=== PATIENT | male | born 1980 | race Caucasian/White ===

== ENCOUNTER 2024-08-03 13:27 | Emergency (ER) | payer OTHER, SELFPAY ==
[2024-08-03] VITALS (26 sets, daily range): BP systolic 118–149; BP diastolic 78–106; PULSE 97–150; RESP 13–25; TEMP 36.6; O2SAT 95–100; BMI 20.2
--- NOTE | 2024-08-03 13:51 | EKG_ITS ---
[place] [id number] [place] [id number] Test Date: 2024-08-03 Pat Name: Octavio Díaz Department: [facility] Room: Gender: Male Mobile Sales Assistant: : 1980 Requested By: Order Number: [id number] Reading MD: Jerry Minaya Measurements Intervals [place] Rate: 142 P: 62 NH: 124 QRS: 76 QRSD: 74 T: 64 QT: 292 QTc: 449 Interpretive Statements Critical Test Result: High HR Sinus tachycardia Electronically Signed On 08-03-2024 14:38:08 PDT by Jerry Minaya
--- NOTE | 2024-08-03 13:51 | ED_ITS ---
HPI - General Adult General Chief complaint: Toxicology Problem Stated complaint: alcohol withdrawl Time Seen by Provider: 08/03/24 13:37 Source: patient Mode of arrival: Ambulatory History of Present Illness HPI narrative: Patient is a 44-year-old male. History of alcohol abuse. States that he was sober for ?quite a long time? before 1 month ago when he started to drink again. He was kicked out of his sober living situation. Has been homeless since then. He also uses methamphetamine. He states his last use of methamphetamine was 2 days ago. He snorted methamphetamine. He does not inject anything. His last drink was at 0300 hours in the morning. He has withdrawn from alcohol in the past. He thinks that maybe he was had a seizure because of alcohol withdrawal but is not sure. Denies any other medical problems. He was here for help with detox. Related Data Home Medications Medication Instructions Recorded Confirmed alprazolam 0.5 mg tablet 0.5 mg PO 3XD PRN Anxiety 08/03/24 08/03/24 divalproex 500 mg tablet,delayed 500 mg PO DAILY 08/03/24 08/03/24 release methylphenidate HCl 20 mg tablet 20 mg PO BID 08/03/24 08/03/24 propranolol 20 mg tablet 40 mg PO BID 08/03/24 08/03/24 quetiapine 200 mg tablet 200 mg PO ONCE PM 08/03/24 08/03/24 Allergies Allergy/AdvReac Type Severity Reaction Status Date / Time No Known Drug Allergies Allergy Verified 08/03/24 13:30 Review of Systems Review of Systems ROS Unobtainable: All systems reviewed & are unremarkable except as noted in HPI and below Patient History Social History Smoking Status: Never smoker Smoking Status: Never smoker alcohol intake frequency: 3 or more drinks per day Alcohol type: hard liquor Substance Use Type: methamphetamine Exam Initial Vital Signs Initial Vital Signs: Vital Signs Temperature 98 F 08/03/24 13:30 Pulse Rate 150 H 08/03/24 13:30 Respiratory Rate 22 08/03/24 13:30 Blood Pressure 140/91 H 08/03/24 13:30 Pulse Oximetry 99 08/03/24 13:30 Oxygen Delivery Method Room Air 08/03/24 13:30 Const General: cooperative and No ill appearing HENMT Head: normal to inspection and normocephalic Resp Effort & Inspection: no cough and tachypneic Auscultation: clear to auscultation bilaterally Cardio Rate: tachycardic Rhythm: regular rhythm GI Inspection: normal to inspection Skin General: no rashes or lesions noted Neuro General: patient alert, patient awake, patient oriented x3 and moves all extremities Extrem General: capillary refill normal Course Orders Ordered: ED Orders 08/03/24 13:34 Consult to [employer] - Re Etcher Stat 08/03/24 13:39 EKG-12 Lead Stat 08/03/24 13:50 Complete Blood Count AUTO DIFF Stat Comprehensive Metabolic Panel Stat Ethanol (ETOH) Stat Lipase Stat Thyroid Stimulating Hormone Stat 08/03/24 15:28 COVID19 -Nasal RAPID Stat 08/03/24 15:36 Urinalysis and Microscopic Stat Urine Drug Screen, Rapid Stat Discontinued Medications Sodium Chloride (Normal Saline 0.9%) 1,000 mls @ 1,000 mls/hr IV BOLUS ONE Stop: 08/03/24 14:37 Last Infusion: 08/03/24 15:19 Dose: Infused Documented By: Admin: 08/03/24 13:55 Dose: 1,000 mls/hr Documented By: SHAWN Thiamine HCl 100 mg/ Sodium (Chloride) 101 mls @ 404 mls/hr IV NOW ONE Stop: 08/03/24 13:39 Last Infusion: 08/03/24 14:17 Dose: Infused Documented By: Admin: 08/03/24 13:56 Dose: 404 mls/hr Documented By: SHAWN Lorazepam (Lorazepam 2 Mg/Ml Inj) 1 mg IV NOW ONE Stop: 08/03/24 13:52 Last Admin: 08/03/24 13:55 Dose: 1 mg Documented By: SHAWN Ondansetron HCl (Ondansetron 4 Mg/2 Ml Inj) 4 mg IV NOW ONE Stop: 08/03/24 14:00 Last Admin: 08/03/24 14:12 Dose: 4 mg Documented By: SHAWN Phenobarbital (Phenobarbital 65 Mg/Ml Vial) 260 mg IV NOW ONE Stop: 08/03/24 13:39 Last Admin: 08/03/24 13:55 Dose: 260 mg Documented By: SHAWN Phenobarbital (Phenobarbital 65 Mg/Ml Vial) 130 mg IV NOW ONE Stop: 08/03/24 17:36 Last Admin: 08/03/24 18:05 Dose: 130 mg Documented By: SPF Vital Signs Vital signs: Vital Signs - 8 hr 08/03/24 13:30 08/03/24 13:46 08/03/24 13:47 Temperature 98 F Pulse Rate 150 H 141 H Respiratory Rate 22 13 Blood Pressure 140/91 H 130/89 Pulse Oximetry 99 Oxygen Delivery Method Room Air 08/03/24 13:47 08/03/24 14:00 08/03/24 14:00 Temperature Pulse Rate 139 H 130 H Respiratory Rate 17 22 Blood Pressure 123/84 Pulse Oximetry 98 Oxygen Delivery Method 08/03/24 14:15 08/03/24 14:15 08/03/24 14:30 Temperature Pulse Rate 126 H Respiratory Rate 25 H Blood Pressure 136/95 H 135/97 H Pulse Oximetry 95 Oxygen Delivery Method 08/03/24 14:30 08/03/24 14:45 08/03/24 14:45 Temperature Pulse Rate 118 H 122 H Respiratory Rate 21 Blood Pressure 138/97 H Pulse Oximetry 96 98 Oxygen Delivery Method 08/03/24 15:00 08/03/24 15:00 08/03/24 15:15 Temperature Pulse Rate 117 H Respiratory Rate 22 Blood Pressure 136/102 H 129/96 H Pulse Oximetry 99 Oxygen Delivery Method 08/03/24 15:15 08/03/24 15:30 08/03/24 15:30 Temperature Pulse Rate 110 H 104 H Respiratory Rate 23 24 Blood Pressure 123/85 Pulse Oximetry 100 100 Oxygen Delivery Method 08/03/24 15:45 08/03/24 15:45 08/03/24 16:00 Temperature Pulse Rate 109 H 100 H Respiratory Rate 24 21 Blood Pressure 130/98 H Pulse Oximetry 100 99 Oxygen Delivery Method 08/03/24 16:01 08/03/24 16:01 08/03/24 16:15 Temperature Pulse Rate 102 H Respiratory Rate 20 Blood Pressure 139/106 H 145/100 H Pulse Oximetry 99 Oxygen Delivery Method 08/03/24 16:15 08/03/24 16:15 08/03/24 16:28 Temperature Pulse Rate 100 H Respiratory Rate 19 Blood Pressure 145/100 H 140/102 H Pulse Oximetry 99 Oxygen Delivery Method 08/03/24 16:28 08/03/24 16:30 08/03/24 16:30 Temperature Pulse Rate 101 H 97 H Respiratory Rate 14 20 Blood Pressure 140/102 H Pulse Oximetry 99 100 Oxygen Delivery Method 08/03/24 16:45 08/03/24 16:45 08/03/24 17:00 Temperature Pulse Rate 102 H 101 H Respiratory Rate 18 21 Blood Pressure 140/100 H Pulse Oximetry 99 99 Oxygen Delivery Method 08/03/24 17:00 08/03/24 17:15 08/03/24 17:15 Temperature Pulse Rate 100 H Respiratory Rate 14 Blood Pressure 139/99 H 139/99 H Pulse Oximetry 99 Oxygen Delivery Method 08/03/24 17:30 08/03/24 17:30 08/03/24 17:45 Temperature Pulse Rate 104 H 107 H Respiratory Rate 21 Blood Pressure 131/92 H Pulse Oximetry 99 99 Oxygen Delivery Method Room Air 08/03/24 17:45 Temperature Pulse Rate Respiratory Rate Blood Pressure 149/95 H Pulse Oximetry Oxygen Delivery Method Medical Decision Making Lab Data Lab results reviewed: Yes I reviewed the patient's lab results. 08/03/24 13:50 08/03/24 13:50 Labs: Lab Results 08/03/24 08/03/24 08/03/24 Range/Units 13:50 15:28 15:36 WBC 7.1 (4.5-11.0) X10^3/uL RBC 4.70 (4.5-5.9) X10^6/uL Hgb 14.3 (13.5-17.5) g/dL Hct 42.4 (41-53) % MCV 90.2 (80-100) fL MCH 30.4 (26-34) PG MCHC 33.7 (30-36) % RDW 17.9 H (11.6-14.8) % Plt Count 314 (150-400) X10^3/uL Neut % (Auto) 56.3 (50-75) % Lymph % (Auto) 31.3 (25-40) % [place] % (Auto) 11.5 (3-14) % Eos % (Auto) 0.3 L (2-4) % Baso % (Auto) 0.6 (0-2) % Neut # (Auto) 4000 (7938-7928) /uL Lymph # (Auto) 2200 (5756-5940) /uL [place] # (Auto) 800 (0-900) /uL Eos # (Auto) 0 (0-450) /uL Baso # (Auto) 0 (0-100) /uL Sodium 140 (137-145) mmol/L Potassium 3.6 (3.4-5.1) mmol/L Chloride 108 H (98-107) mmol/L Carbon Dioxide 23 (22-32) mmol/L BUN 12 (9-20) mg/dL Creatinine 0.98 (0.66-1.25) mg/dL Estimated GFR > 60 (>60) mL/min BUN/Creatinine Ratio 12.2 (6-22) Glucose 84 (70-100) mg/dL Calcium 8.4 (8.4-10.2) mg/dL Total Bilirubin 1.1 (0.2-1.3) mg/dL AST 31 (17-59) IU/L ALT 35 (<50) IU/L Alkaline Phosphatase 95 (38-126) U/L Total Protein 6.3 (6.3-8.2) g/dL Albumin 3.8 (3.5-5.0) g/dL Globulin 2.5 (1.7-4.1) g/dL Albumin/Globulin Ratio 1.5 (1.0-2.8) Lipase 91 (23-300) U/L TSH 0.729 (0.47-4.68) uIU/mL Urine Color [place] Urine Appearance Clear Urine pH 7.0 (4.5-8.0) Ur Specific [place] 1.025 (1.000-1.035) Urine Protein Trace H (Negative) Urine Glucose (UA) Negative (Negative) g/dL Urine Ketones Negative (NEGATIVE) Urine Occult Blood Negative (Negative) Urine Nitrate Negative (Negative) Urine Bilirubin Negative (NEGATIVE) Urine Urobilinogen 1.0 (0.2) E.U./dL Ur Leukocyte Esterase Negative (NEGATIVE) Urine RBC 0-1/hpf (0-5/HPF) Urine WBC 0-1/hpf (0-5/HPF) Ur Squamous Epith Cells 0-1 /hpf (0-5/HPF) Urine Bacteria Occasional (0-1) (None) Urine Mucus 2+ H (Negative) Ur Culture Indicated? Cult not indicated Vol Urine Centrifuged 10ml (spun) U Opiates 300ng/mL cut Negative (Negative) Ur Oxycodone Screen Negative (Negative) Urine Methadone Screen Negative (Negative) Ur Barbiturates Screen Positive H (Negative) U Tricyclic Antidepress Positive H (Negative) Ur Phencyclidine Scrn Negative (Negative) Ur Amphetamines Screen Positive H (Negative) U Methamphetamines Scrn Positive H (Negative) Ur MDMA Scrn (Ecstasy) Negative (Negative) U Benzodiazepines Scrn Negative (Negative) Urine Cocaine Screen Negative (Negative) U Marijuana (THC) Screen Negative (Negative) Urine Specific [place] (Normal) Ethyl Alcohol < 10 ( - 10) mg/dL Ur Creatinine (Normal) SARS-CoV-2 (PCR) Negative (Negative) 08/03/24 Range/Units 15:36 WBC (4.5-11.0) X10^3/uL RBC (4.5-5.9) X10^6/uL Hgb (13.5-17.5) g/dL Hct (41-53) % MCV (80-100) fL MCH (26-34) PG MCHC (30-36) % RDW (11.6-14.8) % Plt Count (150-400) X10^3/uL Neut % (Auto) (50-75) % Lymph % (Auto) (25-40) % [place] % (Auto) (3-14) % Eos % (Auto) (2-4) % Baso % (Auto) (0-2) % Neut # (Auto) (4160-1401) /uL Lymph # (Auto) (8373-2461) /uL [place] # (Auto) (0-900) /uL Eos # (Auto) (0-450) /uL Baso # (Auto) (0-100) /uL Sodium (137-145) mmol/L Potassium (3.4-5.1) mmol/L Chloride (98-107) mmol/L Carbon Dioxide (22-32) mmol/L BUN (9-20) mg/dL Creatinine (0.66-1.25) mg/dL Estimated GFR (>60) mL/min BUN/Creatinine Ratio (6-22) Glucose (70-100) mg/dL Calcium (8.4-10.2) mg/dL Total Bilirubin (0.2-1.3) mg/dL AST (17-59) IU/L ALT (<50) IU/L Alkaline Phosphatase (38-126) U/L Total Protein (6.3-8.2) g/dL Albumin (3.5-5.0) g/dL Globulin (1.7-4.1) g/dL Albumin/Globulin Ratio (1.0-2.8) Lipase (23-300) U/L TSH (0.47-4.68) uIU/mL Urine Color Urine Appearance Urine pH Normal (4.5-8.0) Ur Specific [place] (1.000-1.035) Urine Protein (Negative) Urine Glucose (UA) (Negative) g/dL Urine Ketones (NEGATIVE) Urine Occult Blood (Negative) Urine Nitrate (Negative) Urine Bilirubin (NEGATIVE) Urine Urobilinogen (0.2) E.U./dL Ur Leukocyte Esterase (NEGATIVE) Urine RBC (0-5/HPF) Urine WBC (0-5/HPF) Ur Squamous Epith Cells (0-5/HPF) Urine Bacteria (None) Urine Mucus (Negative) Ur Culture Indicated? Vol Urine Centrifuged U Opiates 300ng/mL cut (Negative) Ur Oxycodone Screen (Negative) Urine Methadone Screen (Negative) Ur Barbiturates Screen (Negative) U Tricyclic Antidepress (Negative) Ur Phencyclidine Scrn (Negative) Ur Amphetamines Screen (Negative) U Methamphetamines Scrn (Negative) Ur MDMA Scrn (Ecstasy) (Negative) U Benzodiazepines Scrn (Negative) Urine Cocaine Screen (Negative) U Marijuana (THC) Screen (Negative) Urine Specific [place] Normal (Normal) Ethyl Alcohol ( - 10) mg/dL Ur Creatinine Normal (Normal) SARS-CoV-2 (PCR) (Negative) ECG Data Attestation: I personally reviewed and interpreted this ECG as follows: Interpretation: Sinus tachycardia Ventricular rate of 142 Normal axis Normal QRS Normal QTC No ST T wave changes MDM Narrative Medical decision making narrative: Patient does have a significant alcohol history. Upon arrival was tachycardic and having withdrawal like symptoms. He was given phenobarbital and his symptoms improved tremendously. He was positive for methamphetamine but did admit to snorting methamphetamine 2 days ago. He states he does not inject any illicit substances. Patient was seen by social work. Was evaluated by [facility]. Was accepted by [facility]. He started to have some more increased shaking and was given a 2nd dose of phenobarbital in his symptoms continue to improve. No seizure activity. Patient is stable. Stable for transport. Patient is agreeable for transfer to detox. Discharge Plan Departure Patient Disposition: Xfer [facility] Clinical Impression: Alcohol withdrawal syndrome, Alcohol abuse, Methamphetamine abuse Prescriptions: No Action methylphenidate HCl 20 mg tablet 20 mg PO BID quetiapine 200 mg tablet 200 mg PO ONCE PM divalproex 500 mg tablet,delayed release (DR/EC) 500 mg PO DAILY propranolol 20 mg tablet 40 mg PO BID alprazolam 0.5 mg tablet 0.5 mg PO 3XD PRN (Reason: Anxiety)
[2024-08-03] MEDS: PHENobarbital 65 MG/ML VIAL 260 MG IV (13:55)
[2024-08-03] MEDS: LORazepam 2 MG/ML INJ 1 MG IV (13:55)
[2024-08-03] MEDS: SODIUM CHLORIDE 0.9% 1,000 ML 1000 ML IV (13:55)
[2024-08-03] MEDS: THIAMINE 100 MG in SODIUM CHLORIDE 0.9% 100 ML 404 MG IV (13:56)
[2024-08-03 13:58] LABS: Add Manual Diff / Slide Review NO; Basophils Absolute Auto 0 /uL (0-100); Basophils Percent Auto 0.6 % (0-2); Eosinophils Absolute Auto 0 /uL (0-450); Eosinophils Percent Auto 0.3 % (2-4); Hematocrit 42.4 % (41-53); Hemoglobin 14.3 g/dL (13.5-17.5); Lymphocytes Absolute Auto 2200 /uL (1100-4500); Lymphocytes Percent Auto 31.3 % (25-40); Mean Corpuscular HGB Conc 33.7 % (30-36); Mean Corpuscular Hemoglobin 30.4 PG (26-34); Mean Corpuscular Volume 90.2 fL (80-100); Monocytes Absolute Auto 800 /uL (0-900); Monocytes Percent Auto 11.5 % (3-14); Neutrophils Absolute Auto 4000 /uL (1500-7000); Neutrophils Percent Auto 56.3 % (50-75); Platelet Count 314 X10^3/uL (150-400); Red Cell Distribution Width 17.9 % (11.6-14.8); White Blood Cell Count 7.1 X10^3/uL (4.5-11.0)
[2024-08-03] MEDS: ONDANSETRON 4 MG/2 ML INJ IV (14:12)
[2024-08-03 14:16] LABS: Alanine Aminotransferase 35 IU/L (<50); Albumin 3.8 g/dL (3.5-5.0); Albumin Globulin Ratio 1.5 (1.0-2.8); Alkaline Phosphatase 95 U/L (38-126); Aspartate Aminotransferase 31 IU/L (17-59); BUN Creatinine Ratio 12.2 (6-22); Bilirubin Total 1.1 mg/dL (0.2-1.3); Blood Urea Nitrogen 12 mg/dL (9-20); Calcium 8.4 mg/dL (8.4-10.2); Carbon Dioxide 23 mmol/L (22-32); Chloride 108 mmol/L (98-107); Estimated Glomerular Filt Rate > 60 mL/min (>60); Ethanol (ETOH) < 10 mg/dL; Globulin 2.5 g/dL (1.7-4.1); Glucose 84 mg/dL (70-100); HEMOLYSIS < 15 (0-50); Lipase 91 U/L (23-300); Potassium 3.6 mmol/L (3.4-5.1); Sodium 140 mmol/L (137-145); Total Protein 6.3 g/dL (6.3-8.2)
--- NOTE | 2024-08-03 14:17 | PC.NURSE ---
Patient is calm and cooperative with care. Desires inpatient rehab to stop drinking. Hx of rehab to withdrawal from alcohol. Recently started drinking again in the last month, drinks 5th of vodka. Last drink at 0300 this morning. CIWA at time of assessment is 6. Medicated per MAR.
[2024-08-03 14:46] LABS: Thyroid Stimulating Hormone 0.729 uIU/mL (0.47-4.68)
[2024-08-03 15:55] LABS: Appearance Urine UA CLEAR; Bilirubin Urine UA NEGATIVE (NEGATIVE); Glucose Urine UA NEGATIVE (Negative); Ketones Urine UA NEGATIVE (NEGATIVE); Leukocyte Esterase Urine UA NEGATIVE (NEGATIVE); Nitrite Urine UA NEGATIVE (Negative); Occult Blood Urine UA NEGATIVE (Negative); Protein Urine UA TRACE (Negative); Specific Gravity Urine UA 1.025 (1.000-1.035)
[2024-08-03 15:57] LABS: Ur Creatinine Normal (Normal); Ur Specific Gravity Normal (Normal); Urine pH Normal (Normal)
[2024-08-03 15:57] LABS: COVID19 -Nasal RAPID Negative (Negative)
[2024-08-03 15:58] LABS: UR Morphine/Opiate cutoff 300 Negative (Negative); Urine Amphetamines Positive (Negative); Urine Barbiturates Positive (Negative); Urine Benzodiazepines Negative (Negative); Urine Cocaine Negative (Negative); Urine MDMA Negative (Negative); Urine Methadone Negative (Negative); Urine Methamphetamines Positive (Negative); Urine Oxycodone Negative (Negative); Urine Phencyclidine Negative (Negative); Urine Tetrahydrocannabinol Negative (Negative); Urine Tricyclic Antidepressant Positive (Negative)
[2024-08-03 16:23] LABS: Bacteria Urine Occasional (0-1); Color Urine UA Amber; Culture Indicated Urine Cult Not Indicated; Mucus Urine 2+ (Negative); RBC Urine 0-1/HPF (0-5/HPF); Squamous Epithelial Cell Urine 0-1 /HPF (0-5/HPF); Urine Volume 10mL (spun); WBC Urine 0-1/HPF (0-5/HPF)
--- NOTE | 2024-08-03 16:29 | CM.SWNOTE ---
ED HYDROELECTRIC STATION CHIEF Assessment Note HYDROELECTRIC STATION CHIEF - Lining Layer Assessment HYDROELECTRIC STATION CHIEF/Lining Layer Assessment Time Spent with Patient Start date 08/03/24 Visit Start Time 15:00 End date 08/03/24 Visit End Time 15:30 Total time Care Management spent on 30 minutes patient visit-in minutes Substance Abuse Screening Include Onset, Duration, Intensity Presenting Problem Patient presents to ED via POV due to concern for ETOH withdrawal. It is reported that patient last drank at 0300 and has been drinking about a 1/5 of hard alcohol a day. Patient also states he used Methamphetamine 2 days ago. Patient is seeking detox and inpatient rehab. Precipitating Event(s) Patient states he relapsed about a month ago and lost his sober housing at [facility], patient states he lived there for 3 years. Patient denies any other triggers or life changes leading to the relapse. Patient states he is now homeless and has been camping in [facility]. Patient Strengths Patient is seeking help. Current Behavioral Health Provider(s) [facility] sees [facility] Include Facility, Provider, Ph. # Radha Bell (Ph. # [phone]) Patient states he is prescribed Xanax, Propanolol, Seroquil, Depakote, and Zyprexa. Family Hx of Behavioral Abuse None reported Rehab Facilities? ((Date(s), Location(s) Patient endorses hx of several ) inpatient rehab stays. Patient states he has been at [facility] 3 times, [facility] 7 times and [facility] 7 times. History of Withdrawal? Seizures? Patient endorses concern for anxiety, fast heart rate and shakiness. Patient denies hx of seizure but states the shakiness felt like a seizure today. Longest Period of Sobriety 3 years Psychosocial information & Support Patient is 44 y/o male who is Systems homeless and was living in sober living in [place] until he recently relapsed. School/Work Disabled Legal Concerns Legal Matters - Outstanding Issues None reported Mental Status Orientation (Person/Place/Time) A/Ox4 Stated Mood sad Affect (Congruent with Mood?) euthymic, full range, somewhat congruent with mood Thought Content - Specify/Describe Patient denies visual and Obsessions, Delusions, Hallucinations auditory hallucinations. Thought Processes (Akwajve-Vqqlyibz-Suus coherent Yszzbjhd-Zzkddxdf-Uaigsbdryk- Ieyhwdscdrkdhd-Ecdjinw-Ovisyjedjjgd- Thought Blocking) Speech (Tlphgk-Slar-Nlsyrka-Rapid-Soft- normal/slow Loud-Pressured) Motor (Kjinjw-Dlqfufuuh-Axjo-Other) normal Insight (Bczp-Vhkh-Wlbq/Limited) fair Judgement (Zjfk-Hpay-Ekny/Limited) fair Impulse Control (Adequate-Impaired) adequate Memory (Vvuum[place]-Dsrfww-Xqgonn, intact, not formally assessed Impaired-Intact) Concentration (Intact-Impaired) intact Attention (Intact-Impaired) intact Behavior (Appropriate-Inappropriate) appropriate Additional Comment Patient presents as calm, cooperative and communicative. Risk Assessment Suicidal Ideation (Plan) No Homicidal Ideation (Plan) No Comment Patient denies current SI and HI. Patient endorses hx of SI and hx of suicide attempt when he was 27 y/o and he overdosed on 72 pills of Celexa. Intervention Intervention HYDROELECTRIC STATION CHIEF enters room to meet with patient. Patient endorses recent relapse and loss of sober housing. Patient presents with motivation to seek detox and rehab placement seeking sobriety. Patient's BAL is 0 at this time, patient's CIWA is 6. It is the opinion of this HYDROELECTRIC STATION CHIEF that patient is appropriate for and will benefit from detox and [facility]hab for medication management and crisis stabilization. Plan RA Plan HYDROELECTRIC STATION CHIEF to seek detox bed for patient upon medical clearance . MIKHAIL HayesSW
--- NOTE | 2024-08-03 17:07 | CM.SWNOTE ---
Addendum entered by Dimple Nathan 08/03/24 17:45: Patient has been accepted at [facility] for detox by Dr. Erasmo Wade, intake is Le. RN to RN ph # is [phone]. PERFUME MAKER informs patient who indicates agreement and understanding. Transport BLS set up for 1850. Patient to transfer to [facility] for detox this evening via BLS. SUKHJINDER Hayes Original Note: ED PERFUME MAKER Note Initially patient does [facility] intake screening and they state that they are unsure if they can accommodate patient's rx. Patient endorses preference for [facility] because of their [facility] rehab after detox program. PERFUME MAKER calls [facility], it is reported that they have beds and can review patient. PERFUME MAKER faxes clinicals for review. After clinicals were faxed it is reported that they accept patient's insurance for detox but not for rehab. PERFUME MAKER to inform patient. [facility] reviewing for detox bed. SUKHJINDER Hayes
[2024-08-03] MEDS: PHENobarbital 65 MG/ML VIAL 130 MG IV (18:05)
== END 2024-08-03 19:08 ==
PROVIDERS: Emergency Provider Emergency Medicine
DX: F10.239 Alcohol dependence with withdrawal, unspecified (principal); F15.10 Other stimulant abuse, uncomplicated; R00.0 Tachycardia, unspecified; Z11.52 Encounter for screening for COVID-19
CPT/HCPCS: 36415; 80053; 80305; 80320; 81001; 83690; 84443; 85025; 87635; 93005; 96361; 96365; 96375; 96376; 99284; J2060; J2405; J2560